=== PATIENT | female | born 2000 | race Two or more races ===

== ENCOUNTER 2024-01-06 09:22 | Emergency (ER) | payer MEDICAID, SELFPAY ==
[2024-01-06 09:29] VITALS: BP 118/70; PULSE 77; RESP 16; TEMP 36.8; O2SAT 100; BMI 24.7
--- NOTE | 2024-01-06 09:44 | XR_ITS ---
Examination: Pelvic ultrasound, transabdominal, complete Technique: Transabdominal ultrasound of the pelvis performed using grayscale imaging Date and time of exam: January 06, 2024 1128 hours INDICATIONS: Left-sided pelvic pain beginning 4 days ago, 3 months FINDINGS: Uterus 9.2 x 3.9 x 4.9 cm Endometrial stripe 0.5 cm No uterine mass or intrauterine gestation Right ovary 3.0 x 1.6 x 2.1 cm arterial flow small follicles Left ovary 3.5 x 1.9 x 3.0 cm arterial flow small follicles IMPRESSION: Negative examination
[2024-01-06 11:00] LABS: Basophils % (Auto) 0 % (0-2.5); Eosinophils # (Auto) 0.1 Thou/mm3 (0.0-0.5); Eosinophils % (Auto) 2 % (0-10); Hematocrit 37.4 % (36.0-46.0); Hemoglobin 12.5 g/dL (12.0-16.0); Immature Granulocytes % (Auto) 0 % (0-0); Immature Granulocytes Auto 0.01 Thou/mm3 (0.00-0.00); Lymphocytes # (Auto) 1.5 Thou/mm3 (1.0-4.8); Lymphocytes % (Auto) 23 % (10-50); Mean Corpuscular HGB Conc 33.4 g/dl (31.0-37.0); Mean Corpuscular Hemoglobin 30.7 pg (25.0-35.0); Mean Corpuscular Volume 92 fL (80-100); Monocytes # (Auto) 0.4 Thou/mm3 (0.0-0.8); Monocytes % (Auto) 6 % (0-12); Neutrophils # (Auto) 4.7 Thou/mm3 (1.8-7.7); Neutrophils % (Auto) 69 % (37-80); Nucleated Red Blood Cell % 0 /100 WBC (0); Platelet Count 281 Thou/mm3 (140-440); RDW Standard Deviation 41.8 fL (36.4-46.3); Red Blood Count 4.07 Miln/mm3 (4.00-5.20); White Blood Count 6.8 Thou/mm3 (3.6-11.0)
[2024-01-06 11:16] LABS: Alanine Aminotransferase 66 U/L (10-49); Albumin, Serum 4.7 gm/dL (3.5-5.0); Albumin/Globulin Ratio 1.7 (1.2-2.2); Alkaline Phosphatase 117 U/L (46-116); Anion Gap 5 (7-16); Aspartate Amino Transferase 39 U/L (0-34); BUN/Creatinine Ratio 15 Ratio (12-20); Bilirubin,Total 0.3 mg/dL (0.3-1.2); Blood Urea Nitrogen 9 mg/dL (9-23); Calcium 9.7 mg/dL (8.3-10.6); Calcium (Corrected) 9.7 mg/dL (8.5-10.1); Carbon Dioxide 24.7 mMol/L (20.0-31.0); Chloride 108 mMol/L (98-107); Creatinine (Component) 0.6 mg/dL (0.6-1.3); Estimated Creatinine Clearance 133.1 mL/min (>60); Globulin 2.8 gm/dL (2.3-3.5); Glucose 116 mg/dL (74-106); Lipase 46 U/L (12-53); Osmolality,Calculated 275 (275-295); Potassium 3.8 mMol/L (3.4-5.1); Sodium 138 mMol/L (136-145); Total Protein 7.5 gm/dL (5.7-8.2); eGFR > 60 See Note
[2024-01-06 11:21] LABS: Collection Type, Urine Clean Catch
[2024-01-06 11:29] LABS: Bilirubin,Urine Negative (Negative); Blood,Urine Negative (Negative); Clarity,Urine Clear (Clear/Hazy); Color,Urine Lt-Yellow (Lt Yel-Yel); Culture Indicated,Urine Not Indicated; Glucose, Urine Negative (Negative); Ketones,Urine Negative (Negative); Leukocyte Esterase,Urine Negative (Negative); Nitrite,Urine Negative (Negative); PH,Urine 6.5 (5.0-7.0); Protein,Urine Negative (Neg - Trace); RBC,Urine 2 /hpf (0-3); Specific Gravity,Urine 1.023 (1.001-1.035); Squamous Epithelial Cell,Urine 6 /hpf (0-5); Urobilinogen,Urine Negative mg/dL (0.0-1.0); WBC,Urine 1 /hpf (0-5)
[2024-01-06 11:32] LABS: HCG Qualitative,Urine Negative
--- NOTE | 2024-01-06 11:36 | PD.EDRME ---
Rapid Medical Screening Exam RME Arrival date/time: 01/06/24 09:22 23-year-old female presents emergency department complains of left-sided pelvic pain Chief Complaint: Abdominal Pain Time Seen by Provider: 01/06/24 09:28 Vital signs: Vital Signs Temperature 98.3 F 01/06/24 09:29 Pulse Rate 77 01/06/24 09:29 Respiratory Rate 16 01/06/24 09:29 Blood Pressure 118/70 01/06/24 09:29 Pulse Oximetry (%) 100 01/06/24 09:29 Oxygen Delivery Method Room Air 01/06/24 09:29
--- NOTE | 2024-01-06 13:11 | PD.EDADULT ---
ED General RME/HPI General Chief complaint: Abdominal Pain Stated complaint: LEFT LOWER ABDOMINAL PAIN X4 DAYS Time Seen by Provider: 01/06/24 09:28 Arrival date/time: 01/06/24 09:22 CC: Left suprapubic pain HPI ongoing for the past several days. Patient denies painful urination bloody urination nausea vomiting or diarrhea. The patient is delivered a child 3 months ago is not breast-feeding denies any other symptoms no OTC medicines taken. RME / HPI RME / HPI narrative: 01/06/24 09:22 23-year-old female presents emergency department complains of left-sided pelvic pain Related Data Allergies Allergy/AdvReac Type Severity Reaction Status Date / Time No Known Allergies Allergy Verified 01/06/24 09:26 Review of Systems Review of Systems Narrative Review of Systems: GEN: No fever, no chills, no weight loss EYES: No discharge, no visual changes, no pain HEENT: No ear pain, no congestion, no sore throat PULM: No shortness of breath, no cough, no congestion CV: No chest pain, no dyspnea on exertion, no palpitations GI: No nausea, no vomiting, no diarrhea, + pain, no constipation : No frequency, no urgency, no dysuria MUSC/SKEL: No joint pain, no back pain SKIN: No rash PSYCH: No hallucinations, no depression HEME/LYMPH: No easy bleeding or bruising tendencies NEURO: No weakness, no headache Past Medical History Past Medical History CARDIAC: Negative Congestive Heart Failure RESPIRATORY: Negative Chronic Obstructive Pulmonary Disease (COPD) GENITOURINARY: Negative Renal Disease ENDOCRINE: Negative Diabetes Mellitus Type 1 or Diabetes Mellitus Type 2 Social History SMOKING STATUS: Never smoker ED Exam Narrative Physical exam: [General: Obese not in cot no acute distress Head normocephalic HEENT: Within acceptable limits Neck is supple nontender Chest equal chest rise nontender to palpation Respiratory: Clear to auscultation no wheezes crackles or rubs CV: Rate rhythm is regular no murmurs rubs or clicks Abdomen left suprapubic pain is reproducible palpation there is mild reflexive guarding but no rebound tenderness. No pain in any other quadrant of the abdomen with deep palpation. Back: No CVA tenderness no spinous process tenderness from cervical spine thoracic and lumbar spine Skin: Intact no petechiae rash induration ulceration or crepitus Extremities: Moving all extremity against resistance cap refill less than 2 seconds neurosensory intact Neuro: Awake alert oriented x3 Glascow coma 15 no focal deficits] Course Quality Measures none Orders Category Date Time Status US pelvic complete Stat Exams 01/06/24 09:44 Completed CBC Stat Lab 01/06/24 10:26 Completed Comprehensive Metabolic Panel Stat Lab 01/06/24 10:26 Completed HCG Qualitative,Urine Stat Lab 01/06/24 11:10 Completed Lipase Stat Lab 01/06/24 10:26 Completed UA, C/S IF [Urinalysis, C/S if Indicated] Stat Lab 01/06/24 11:10 Completed Vital Signs Vital signs: Vital Signs Temperature 98.3 F 01/06/24 09:29 Pulse Rate 77 01/06/24 09:29 Respiratory Rate 16 01/06/24 09:29 Blood Pressure 118/70 01/06/24 09:29 Pulse Oximetry (%) 100 01/06/24 09:29 Oxygen Delivery Method Room Air 01/06/24 09:29 [facility] Patient data External records reviewed:: [facility] previous records Clinical information provided by:: patient Social determinants that could affect healthcare access:: none Patient has the following chronic illnesses:: None How is presenting disease/condition affected by chronic disease/condition?: uneffected by Evaluation data The following diagnostics were reviewed and interpreted by me:: lab results and radiology exam(s) Lab and/or radiology exams considered but not ordered:: CBC shows no acute leukocytosis anemia thrombocytopenia CMP shows no electrolyte imbalances renal impairment there is mild transaminitis but the T. bili is normal Urine is negative Urine is negative Ultrasound shows no acute finding in the lower abdomen. Interpretation Summary: Lower abdomen pain is probably muscular in nature as the patient carries her child in the left arm consistently. Medications Medications considered but not ordered:: None Medication administrations:: None Consultations Consultation(s) initiated? (list below): No Diagnosis Differential Diagnosis ED Complaint MDM: Ovarian cyst uterine fibroid UTI Most likely diagnosis given after review of the tests above:: Lower abdominal pain Admission Indicated Admission indicated?: not indicated Explain why admission is indicated or not indicated:: Stable for outpatient follow-up Admission Request Was there a request for admission?: No Disposition Plan Disposition Plan: Discharge Discharge Attestation Discharge Attestation: The patient and all family members were given an opportunity to ask questions and understood the discharge instructions. Discharge instructions specifically effects, indications for sooner follow up or return to the emergency department, and the expected course of current diagnosis. Patient condition: Stable Medical Decision Making Differential Diagnosis Differential Diagnosis: Ovarian cyst uterine fibroid UTI Lab Data 01/06/24 10:01/06/24: Labs: Lab Results 01/06/24 01/06/24 Range/Units 10: 11:10 WBC 6.8 (3.6-11.0) Thou/mm3 RBC 4.07 (4.00-5.20) Miln/mm3 Hgb 12.5 (12.0-16.0) g/dL Hct 37.4 (36.0-46.0) % MCV 92 (80-100) fL MCH 30.7 (25.0-35.0) pg MCHC 33.4 (31.0-37.0) g/dl RDW Std Deviation 41.8 (36.4-46.3) fL Plt Count 281 (140-440) Thou/mm3 Neut % (Auto) 69 (37-80) % Lymph % (Auto) 23 (10-50) % [place] % (Auto) 6 (0-12) % Eos % (Auto) 2 (0-10) % Baso % (Auto) 0 (0-2.5) % Neut # (Auto) 4.7 (1.8-7.7) Thou/mm3 Lymph # (Auto) 1.5 (1.0-4.8) Thou/mm3 [place] # (Auto) 0.4 (0.0-0.8) Thou/mm3 Eos # (Auto) 0.1 (0.0-0.5) Thou/mm3 Baso # (Auto) 0.0 (0.0-0.2) Thou/mm3 Immature Gran # (Auto) 0.01 H (0.00-0.00) Thou/mm3 Absolute Nucleated RBC 0.00 (0.00-0.00) Thou/mm3 Immature Gran % 0 (0-0) % Nucleated RBC % 0 (0) /100 WBC Sodium 138 (136-145) mMol/L Potassium 3.8 (3.4-5.1) mMol/L Chloride 108 H (98-107) mMol/L Carbon Dioxide 24.7 (20.0-31.0) mMol/L Anion Gap 5 L (7-16) BUN 9 (9-23) mg/dL Creatinine 0.6 (0.6-1.3) mg/dL Estim Creat Clear Calc 133.1 (>60) mL/min eGFR > 60 (60 - ) See Note BUN/Creatinine Ratio 15 (12-20) Ratio Glucose 116 H (74-106) mg/dL Calculated Osmolality 275 (275-295) Calcium 9.7 (8.3-10.6) mg/dL Corrected Calcium 9.7 (8.5-10.1) mg/dL Total Bilirubin 0.3 (0.3-1.2) mg/dL AST 39 H (0-34) U/L ALT 66 H (10-49) U/L Alkaline Phosphatase 117 H (46-116) U/L Total Protein 7.5 (5.7-8.2) gm/dL Albumin 4.7 (3.5-5.0) gm/dL Globulin 2.8 (2.3-3.5) gm/dL Albumin/Globulin Ratio 1.7 (1.2-2.2) Lipase 46 (12-53) U/L Ur Collection Type Clean Catch Urine Color Lt-Yellow (Lt Yel-Yel) Urine Clarity Clear (Clear/Hazy) Urine pH 6.5 (5.0-7.0) Ur Specific [place] 1.023 (1.001-1.035) Urine Protein Negative (Neg - Trace) Urine Glucose (UA) Negative (Negative) Urine Ketones Negative (Negative) Urine Blood Negative (Negative) Urine Nitrite Negative (Negative) Urine Bilirubin Negative (Negative) Urine Urobilinogen (Auto) Negative (0.0-1.0) mg/dL Ur Leukocyte Esterase Negative (Negative) Urine RBC 2 (0-3) /hpf Urine WBC 1 (0-5) /hpf Ur Squamous Epith Cells 6 H (0-5) /hpf Urine Bacteria None (None) Ur Culture Indicated? Not Indicated Urine HCG, Qual Negative Discharge Plan Plan Patient Disposition: HOME (Self Care) Patient condition on transfer: Stable Prescriptions/Referrals Referrals: James Domingo MD [Primary Care Provider] - In 1 week Problem List Clinical Impression: Abdominal pain, left lower quadrant Patient/Caregiver Discharge Instructions Other Activity Instructions:: Take ibuprofen or Tylenol for pain follow-up with your primary care provider if there is worsening of symptoms in spite of the medication recommended for return to the emergency room for reevaluation. Education Materials: Abdominal Pain Print Language: Welsh Stand Alone Forms: Kaila Award Info., Patient Portal Info Letter, Work/School Release PA/CASH APPLICATIONS REPRESENTATIVE Supervising Physician PA/CASH APPLICATIONS REPRESENTATIVE Supervising Physician: Franco Pierce NP
== END 2024-01-06 13:41 | disposition home or self-care (01) ==
PROVIDERS: Nurse Practitioner Primary Care; Emergency Provider Emergency Medicine; PCP Family Medicine
DX: R10.32 Left lower quadrant pain (principal); R10.2 Pelvic and perineal pain
CPT/HCPCS: 36415; 76856; 80053; 81001; 81025; 83690; 85025; 99284

== ENCOUNTER 2024-07-25 10:56 | Emergency (ER) | payer MEDICAID, SELFPAY ==
[2024-07-25 11:18] VITALS: BP 105/71; PULSE 80; RESP 16; TEMP 36.8; O2SAT 99; BMI 31.7
--- NOTE | 2024-07-25 11:27 | XR_ITS ---
Examination: Abdomen sonogram, Limited Date and time of exam: July 25, 2024 1134 hours INDICATIONS: Onset right upper abdominal pain beginning today Technique: Real-time brewer scale transabdominal sonographic images of the upper abdomen obtained. Findings: Negative for gallstones Gallbladder wall 0.3 cm Common bile duct 0.4 cm Pancreatic head 1.6 cm Liver 15.5 cm fatty infiltration no focal liver lesions Normal hepatopedal portal venous flow Patent IVC IMPRESSION: Normal gallbladder Fatty liver
--- NOTE | 2024-07-25 11:28 | PD.EDRME ---
Rapid Medical Screening Exam RME Arrival date/time: 07/25/24 10:56 23-year-old female presents to the emergency department today for complaint of upper abdominal pain patient reports history of gallstones Chief Complaint: Abdominal Pain Vital signs: Vital Signs Temperature 98.2 F 07/25/24 11:18 Pulse Rate 80 07/25/24 11:18 Respiratory Rate 16 07/25/24 11:18 Blood Pressure 105/71 07/25/24 11:18 Pulse Oximetry (%) 99 07/25/24 11:18 Oxygen Delivery Method Room Air 07/25/24 11:18
[2024-07-25 12:04] LABS: Basophils % (Auto) 0 % (0-2.5); Eosinophils # (Auto) 0.1 Thou/mm3 (0.0-0.5); Eosinophils % (Auto) 1 % (0-10); Hemoglobin 14.2 g/dL (12.0-16.0); Immature Granulocytes % (Auto) 0 % (0-0); Immature Granulocytes Auto 0.02 Thou/mm3 (0.00-0.00); Lymphocytes # (Auto) 1.9 Thou/mm3 (1.0-4.8); Lymphocytes % (Auto) 23 % (10-50); Mean Corpuscular HGB Conc 36.4 g/dl (31.0-37.0); Mean Corpuscular Hemoglobin 33.4 pg (25.0-35.0); Mean Corpuscular Volume 92 fL (80-100); Monocytes # (Auto) 0.6 Thou/mm3 (0.0-0.8); Monocytes % (Auto) 8 % (0-12); Neutrophils # (Auto) 5.5 Thou/mm3 (1.8-7.7); Neutrophils % (Auto) 67 % (37-80); Nucleated Red Blood Cell % 0 /100 WBC (0); Platelet Count 269 Thou/mm3 (140-440); RDW Standard Deviation 40.1 fL (36.4-46.3); Red Blood Count 4.25 Miln/mm3 (4.00-5.20); White Blood Count 8.1 Thou/mm3 (3.6-11.0)
[2024-07-25] MEDS: ONDANSETRON ODT 4 MG TABRAP PO (12:09)
[2024-07-25] MEDS: HYDROcodone/APAP 5/325 TABLET 1 TAB PO (12:09)
[2024-07-25 12:22] LABS: Alanine Aminotransferase 20 U/L (10-49); Albumin, Serum 4.6 gm/dL (3.5-5.0); Albumin/Globulin Ratio 1.8 (1.2-2.2); Alkaline Phosphatase 102 U/L (46-116); Anion Gap 11 (7-16); Aspartate Amino Transferase 16 U/L (0-34); BUN/Creatinine Ratio 13 Ratio (12-20); Bilirubin,Total 0.5 mg/dL (0.3-1.2); Blood Urea Nitrogen 9 mg/dL (9-23); Calcium 9.1 mg/dL (8.3-10.6); Calcium (Corrected) 9.1 mg/dL (8.5-10.1); Carbon Dioxide 25.2 mMol/L (20.0-31.0); Chloride 106 mMol/L (98-107); Creatinine (Component) 0.7 mg/dL (0.6-1.3); Estimated Creatinine Clearance 118.7 mL/min (>60); Globulin 2.6 gm/dL (2.3-3.5); Glucose 89 mg/dL (74-106); Lipase 45 U/L (12-53); Osmolality,Calculated 280 (275-295); Potassium 3.7 mMol/L (3.4-5.1); Sodium 142 mMol/L (136-145); Total Protein 7.2 gm/dL (5.7-8.2); eGFR > 60 See Note
[2024-07-25 12:41] LABS: Collection Type, Urine Clean Catch
[2024-07-25 13:01] LABS: Bilirubin,Urine Negative (Negative); Blood,Urine Negative (Negative); Clarity,Urine Clear (Clear/Hazy); Color,Urine Lt-Yellow (Lt Yel-Yel); Culture Indicated,Urine Not Indicated; Glucose, Urine Negative (Negative); Ketones,Urine Negative (Negative); Leukocyte Esterase,Urine Negative (Negative); Nitrite,Urine Negative (Negative); PH,Urine 6.5 (5.0-7.0); Protein,Urine Negative (Neg - Trace); RBC,Urine 2 /hpf (0-3); Specific Gravity,Urine 1.017 (1.001-1.035); Squamous Epithelial Cell,Urine 7 /hpf (0-5); Urobilinogen,Urine Negative mg/dL (0.0-1.0); WBC,Urine 1 /hpf (0-5)
[2024-07-25 13:03] LABS: HCG Qualitative,Urine Negative
--- NOTE | 2024-08-03 17:33 | EDNOTE_ITS ---
ED Abdominal Pain RME/HPI General Chief Complaint: Abdominal Pain Stated complaint: RIGHT ABD / GALLBLADDER PAIN; VOMITING Time seen by provider: 07/25/24 11:36 Arrival date/time: 07/25/24 10:56 23-year-old female presents to the emergency department today for complaint of upper abdominal pain patient reports history of gallstones Source: patient Mode of arrival: ambulatory Limitations: no limitations RME / HPI RME / HPI narrative: 07/25/24 10:56 23-year-old female presents to the emergency department today for complaint of upper abdominal pain patient reports history of gallstones Related Data Previous Rx's ?Medication ?Instructions ?Recorded ondansetron 4 mg disintegrating 4 mg PO Q8H PRN nausea and 07/25/24 tablet vomiting #14 tabs Allergies Allergy/AdvReac Type Severity Reaction Status Date / Time No Known Allergies Allergy Verified 01/06/24 09:26 Review of Systems Review of Systems Systems Reviewed: All systems reviewed, normal except as documented Constitutional Constitutional: Reports system reviewed and no additional complaints, except as documented, Denies fatigue, Denies fever(s), Denies headache(s) and Denies weakness Eyes Eyes: Reports system reviewed and no additional complaints, except as documented, Denies blurry vision and Denies change in vision ENT Ears, Nose, Mouth, and Throat: Reports system reviewed and no additional complaints, except as documented, Denies otalgia, Denies headache(s), Denies nasal congestion, Denies throat swelling and Denies vertigo Cardiovascular Cardiovascular: Reports system reviewed and no additional complaints, except as documented, Denies chest pain, Denies dyspnea and Denies dyspnea on exertion Respiratory Respiratory: Reports system reviewed and no additional complaints, except as documented, Denies chest congestion, Denies cough, Denies dyspnea, Denies dyspnea on exertion and Denies wheezing Gastrointestinal Gastrointestinal: Reports system reviewed and no additional complaints, except as documented, Reports abdominal pain, Reports cramping, Reports nausea and Reports vomiting Genitourinary Genitourinary: Reports system reviewed and no additional complaints, except as documented Musculoskeletal Musculoskeletal: Reports system reviewed and no additional complaints, except as documented and Denies back pain Integumentary/Breasts Skin/Breast: Reports system reviewed and no additional complaints, except as documented and Denies wounds Neurologic Neurologic: Reports system reviewed and no additional complaints, except as documented, Denies confusion, Denies headache(s), Denies lack of coordination, Denies vertigo and Denies weakness Psychiatric Psychiatric: Reports system reviewed and no additional complaints, except as documented, Denies anxiety, Denies confusion, Denies depression, Denies paranoia, Denies suicidal ideation and Denies tactile hallucinations Endocrine Endocrine: Reports system reviewed and no additional complaints, except as documented and Denies fatigue Hematologic/Lymphatic Hematologic/Lymphatic: Reports system reviewed and no additional complaints, except as documented and Denies lymphadenopathy Allergic/Immunologic Allergic/Immunologic: Reports system reviewed and no additional complaints, except as documented, Denies throat swelling, Denies urticaria and Denies wheezing Past Medical History Past Medical History CARDIAC: Negative Congestive Heart Failure RESPIRATORY: Negative Chronic Obstructive Pulmonary Disease (COPD) GENITOURINARY: Negative Renal Disease ENDOCRINE: Negative Diabetes Mellitus Type 1 or Diabetes Mellitus Type 2 Social History SMOKING STATUS: Never smoker ED Exam General Limitations: Present no limitations General appearance: Present alert and in no apparent distress Head Head exam: Present atraumatic Eye Eye exam: Present normal appearance, PERRL and EOMI ENT ENT exam: Present normal exam, normal oropharynx and mucous membranes moist Neck Neck exam: Present normal inspection, full ROM and trachea midline Chest Chest inspection: Present normal inspection and symmetric chest wall rise Respiratory Respiratory exam: Present normal lung sounds bilaterally Cardiovascular Cardiovascular exam: Present regular rate, normal rhythm and normal heart sounds Abdominal Exam Abdominal exam: Present soft, tenderness and normal bowel sounds Abdominal tenderness: Present RUQ and mild Extremities Exam Extremities exam: Present normal inspection and full ROM Back Exam Back exam: Present normal inspection and full ROM Neurological Exam Neurological exam: Present alert, oriented X3 and CN II-XII intact Psychiatric Psychiatric exam: Present normal affect and normal mood Skin Skin exam: Present warm, dry, intact and normal color Course Quality Measures none Orders Category Date Time Status US gall bladder Stat Exams 07/25/24 11:27 Completed CBC Stat Lab 07/25/24 11:50 Completed Comprehensive Metabolic Panel Stat Lab 07/25/24 11:50 Completed HCG Qualitative,Urine Stat Lab 07/25/24 12:33 Completed Lipase Stat Lab 07/25/24 11:50 Completed UA, C/S IF [Urinalysis, C/S if Indicated] Stat Lab 07/25/24 12:33 Completed HYDROcodone*/APAP 5/325 [Isabela 5/325] Med 07/25/24 11:28 Discontinued 1 tab PO X1 ONE Ondansetron Odt [Zofran Odt] Med 07/25/24 11:28 Discontinued 4 mg PO X1 ONE Vital Signs Vital signs: Vital Signs Temperature 98.2 F 07/25/24 11:18 Pulse Rate 80 07/25/24 11:18 Respiratory Rate 16 07/25/24 11:18 Blood Pressure 105/71 07/25/24 11:18 Pulse Oximetry (%) 99 07/25/24 11:18 Oxygen Delivery Method Room Air 07/25/24 11:18 O2 saturation 99% within normal limits Abdominal Pain MDM MDM Narrative MDM Narrative:: 23-year-old female presents to the emergency department today for complaint of upper abdominal pain patient reports history of gallstones Patient is hemodynamically stable and in no apparent distress. She is afebrile not tachycardic not tachypneic Physical examination shows pain and tenderness to the right upper quadrant with palpation. There is a negative Moctezuma sign Ultrasound of the gallbladder was completed and shows a normal gallbladder there is no cholecystitis or any cholelithiasis CBC CMP are within normal limits Urinalysis is within normal limits Patient was discharged and educated to follow-up with primary care provider in the next 24 to 48 hours and return to the emergency room for any evidence of worsening signs or symptoms Patient data External records reviewed:: [facility] previous records Clinical information provided by:: patient Social determinants that could affect healthcare access:: none Patient has the following chronic illnesses:: No chronic illness How is presenting disease/condition affected by chronic disease/condition?: no chronic disease Evaluation data The following diagnostics were reviewed and interpreted by me:: lab results and radiology exam(s) Lab and/or radiology exams considered but not ordered:: Labs and radiology exams considered and ordered Interpretation Summary: Ultrasound gallbladder-Findings: Negative for gallstones Gallbladder wall 0.3 cm Common bile duct 0.4 cm Pancreatic head 1.6 cm Liver 15.5 cm fatty infiltration no focal liver lesions Normal hepatopedal portal venous flow Patent IVC IMPRESSION: Normal gallbladder Fatty liver Medications / Prescriptions Medications or Prescriptions considered but not ordered:: Medication given Medication administrations:: Medication Administration History Discontinued Medications Hydrocodone Bitart/Acetaminophen (Hydrocodone/Apap 5/325 Tablet) 1 tab PO X1 ONE Stop: 07/25/24 11:29 Last Admin: 07/25/24 12:09 Dose: 1 tab Documented By: THAO Ondansetron HCl (Ondansetron Odt 4 Mg Tabrap) 4 mg PO X1 ONE; Protocol Stop: 07/25/24 11:29 Last Admin: 07/25/24 12:09 Dose: 4 mg Documented By: THAO Medication given Consultations Consultation(s) initiated? (list below): No Diagnosis Differential diagnosis abdominal pain: abdominal pain, gastroenteritis and other (Cholelithiasis/cholecystitis) Most likely diagnosis given after review of the tests above:: Gastroenteritis Admission Indicated Admission indicated?: not indicated Admission Request Was there a request for admission?: No Disposition Plan Disposition Plan: Discharge Discharge Attestation Discharge Attestation: The patient and all family members were given an opportunity to ask questions and understood the discharge instructions. Discharge instructions specifically effects, indications for sooner follow up or return to the emergency department, and the expected course of current diagnosis. Patient condition: Stable Discharge Plan Plan Patient Disposition: HOME (Self Care) Discharge Disposition comment: Stable Prescriptions/Referrals Prescriptions/Med Rec: New ondansetron 4 mg tablet,disintegrating 4 mg PO Q8H PRN (Reason: nausea and vomiting) Qty: 14 0RF Referrals: James Domingo MD [Primary Care Provider] - In 1 week Problem List Clinical Impression: Gastroenteritis Patient/Caregiver Discharge Instructions Education Materials: Understanding Colitis, ED Gastroenteritis, Noninfectious Additional Instructions: Por favor, consulte con oliveira m?dico de cabecera en las pr?ximas 24 a 48 horas. Se realiz? josiah ecograf?a de la ves?cula biliar y el resultado fue negativo para c?lculos biliares o cualquier hallazgo josé miguel. Coleen an?lisis de dottie y orina estaban dentro de los l?mites normales. Si hay alguna evidencia de empeoramiento de los signos o s?ntomas, regrese a la beny de emergencias de inmediato. Print Language: Turkmen Stand Alone Forms: Kaila Award Info., Work/School Release, Patient Portal Info Letter PA/QUALITY ASSURANCE SUPERVISOR TRIM Supervising Physician PA/QUALITY ASSURANCE SUPERVISOR TRIM Supervising Physician: Dr Walker
== END 2024-07-25 20:41 | disposition home or self-care (01) ==
PROVIDERS: Nurse Practitioner Primary Care; Emergency Provider Emergency Medicine; PCP Family Medicine
DX: K52.9 Noninfective gastroenteritis and colitis, unspecified (principal); K76.0 Fatty (change of) liver, not elsewhere classified
CPT/HCPCS: 36415; 76705; 80053; 81001; 81025; 83690; 85025; 99284; Q0162; A9270

== ENCOUNTER 2024-10-25 10:56 | Emergency (ER) | payer MEDICAID, SELFPAY ==
--- NOTE | 2024-10-25 11:35 | XR_ITS ---
Examination: Abdomen sonogram, Limited Date and time of exam: October 25, 2024 1213 hours INDICATIONS: Right upper abdominal pain nausea vomiting beginning 2 days ago Technique: Real-time brewer scale transabdominal sonographic images of the upper abdomen obtained. Findings: Normal gallbladder Normal common bile duct 0.2 cm Pancreatic head 2.5 cm Liver 16.4 cm fatty infiltration Normal hepatopedal portal venous oh Patent IVC IMPRESSION: Normal gallbladder Mild hepatomegaly fatty infiltration throughout the liver
[2024-10-25 11:36] VITALS: BP 108/72; PULSE 79; RESP 18; TEMP 37.3; O2SAT 97; BMI 26.9
--- NOTE | 2024-10-25 11:36 | EDNOTE_ITS ---
<Statement entered by Rochelle Carrero MD - 11/05/24 11:18> As co-signing physician, I was present and available for consult prn. I concur with the plan and care as documented by the midlevel provider. ED General RME/HPI General Chief complaint: Abdominal Pain Stated complaint: R) ABD PAIN X 2 DAYS Time Seen by Provider: 10/25/24 11:21 Arrival date/time: 10/25/24 10:56 CC: Right upper quadrant abdominal pain HPI ongoing for the past 2 days worse after meals radiates to the back prior history of it in April was seen here and told it was nothing . Patient states she has had last vomiting was at 8 AM this morning continues to be nauseated denies painful urination bloody urination or diarrhea. No OTC medicines taken. Patient seen by [facility] localized pain is a 6 to an 8 on a 10 scale worse when she walks or after meals. Related Data Previous Rx's ?Medication ?Instructions ?Recorded ondansetron 4 mg disintegrating 4 mg PO Q8H PRN nausea and 07/25/24 tablet vomiting #14 tabs pantoprazole 20 mg tablet,delayed 20 mg PO QDAY #30 ta bs 10/25/24 release (Protonix) Allergies Allergy/AdvReac Type Severity Reaction Status Date / Time No Known Allergies Allergy Verified 10/25/24 11:01 Review of Systems Review of Systems Narrative Review of Systems: GEN: No fever, no chills, no weight loss EYES: No discharge, no visual changes, no pain HEENT: No ear pain, no congestion, no sore throat PULM: No shortness of breath, no cough, no congestion CV: No chest pain, no dyspnea on exertion, no palpitations GI: + nausea, + vomiting, no diarrhea, + pain, no constipation : No frequency, no urgency, no dysuria MUSC/SKEL: No joint pain, no back pain SKIN: No rash PSYCH: No hallucinations, no depression HEME/LYMPH: No easy bleeding or bruising tendencies NEURO: No weakness, no headache Past Medical History Past Medical History CARDIAC: Negative Congestive Heart Failure RESPIRATORY: Negative Chronic Obstructive Pulmonary Disease (COPD) GENITOURINARY: Negative Renal Disease ENDOCRINE: Negative Diabetes Mellitus Type 1 or Diabetes Mellitus Type 2 Social History SMOKING STATUS: Never smoker ED Exam Narrative Physical exam: [General: In mild discomfort but not in any acute distress Head normocephalic HEENT: Eyes pupils are PERRLA EOMs are intact although subsystems of HEENT are within acceptable limits Neck is supple nontender Chest equal chest rise nontender to palpation Respiratory: Clear to auscultation no wheezes crackles or rubs CV: Rate rhythm is regular no murmurs rubs or clicks Abdomen is soft epigastric right upper quadrant tenderness with reflexive guarding no rebound tenderness. No lower abdominal pain with palpation. Back: No CVA tenderness no spinous process tenderness from cervical spine thoracic and lumbar spine Skin: Intact no petechiae rash induration ulceration or crepitus Extremities: Moving all extremity against resistance cap refill less than 2 seconds neurosensory intact Neuro: Awake alert oriented x3 Glascow coma 15 no focal deficits] Course Course Course Narrative: Patient had significant relief with Maalox, I suspect this is all reflux, will discharge the patient home on Protonix and told to be on a bland diet. Quality Measures none Orders Category Date Time Status US gall bladder Stat Exams 10/25/24 11:35 Completed B-Type Natriuretic Peptide Stat Lab 10/25/24 12:38 Completed CBC Stat Lab 10/25/24 12:38 Completed Comprehensive Metabolic Panel Stat Lab 10/25/24 12:38 Completed Drug Screen,Urine Stat Lab 10/25/24 12:00 Completed Lipase Stat Lab 10/25/24 12:38 Completed Magnesium Stat Lab 10/25/24 12:38 Completed Partial Thromboplastin Time Stat Lab 10/25/24 12:38 Completed Prothrombin Time with INR Stat Lab 10/25/24 12:38 Completed Urinalysis, C/S if Indicated Stat Lab 10/25/24 12:00 Completed Ondansetron Odt [Zofran Odt] Med 10/25/24 11:35 Discontinued 4 mg PO X1 ONE mg Hyd/Al Hyd/Josephine Susp [Maalox Susp] Med 10/25/24 11:35 Discontinued 30 ml PO X1 ONE Vital Signs Vital signs: Vital Signs Temperature 99.1 F 10/25/24 11:36 Pulse Rate 79 10/25/24 11:36 Respiratory Rate 18 10/25/24 11:36 Blood Pressure 108/72 10/25/24 11:36 Pulse Oximetry (%) 97 10/25/24 11:36 Oxygen Delivery Method Room Air 10/25/24 11:36 Discharge Plan Plan Patient Disposition: HOME (Self Care) Patient condition on transfer: Stable Prescriptions/Referrals Prescriptions/Med Rec: New pantoprazole [Protonix] 20 mg tablet,delayed release (DR/EC) 20 mg PO QDAY Qty: 30 1RF No Action ondansetron 4 mg tablet,disintegrating 4 mg PO Q8H PRN (Reason: nausea and vomiting) Qty: 14 0RF Referrals: No Primary/Family,Physician [Primary Care Provider] - In 1 week James Domingo MD [Physician] - In 1 week Problem List Clinical Impression: Acid reflux Patient/Caregiver Discharge Instructions Education Materials: ED Diet, Twain (Adult), ED GERD (Adult) Additional Instructions: Avoid all greasy spicy and fatty foods take the medication as prescribed if there is a worsening of symptoms in spite of these medications return the emergency room immediately for further evaluation. Print Language: Gabonese Stand Alone Forms: Kaila Award Info., Patient Portal Info Letter, Work/School Release PA/STATION ENGINEER Supervising Physician PA/STATION ENGINEER Supervising Physician: Franco Bowens ENP [facility] Clinical Information Provided by patient Medical Records Reviewed [facility] Meds/Rx Considered, not Ordered None Labs/Rad/Tests considered, not Ordered None Chronic Illness/Social Conditions which may negatively complicate care or outcome(s)-explain: None or not applicable EKG EKG not done Lab Interpretation Labs: interpreted by vt Lab(s) interpretation(s): CBC shows no acute leukocytosis anemia thrombocytopenia Coags within acceptable limits CMP shows no significant electrolyte imbalances renal impairment transaminitis or T. bili elevation BNP is negative Lipase is within acceptable limits Urine is negative for urinary tract infection UDS is negative. Imaging Provider imaging interpretation(s): Ultrasound shows a normal gallbladder Medication Administration(s) Medication Administration History Discontinued Medications Al Hydrox/Mg Hydrox/Simethicone (Mg Hyd/Al Hyd/Josephine (Maalox Reg) Susp 30 Ml Udc) 30 ml PO X1 ONE Stop: 10/25/24 11:36 Last Admin: 10/25/24 11:48 Dose: 30 ml Documented By: THAO Ondansetron HCl (Ondansetron Odt 4 Mg Tabrap) 4 mg PO X1 ONE; Protocol Stop: 10/25/24 11:36 Last Admin: 10/25/24 11:50 Dose: 4 mg Documented By: THAO
[2024-10-25] MEDS: MG HYD/AL HYD/SIME (Maalox Reg) SUSP 30 ML UDC PO (11:48)
[2024-10-25] MEDS: ONDANSETRON ODT 4 MG TABRAP PO (11:50)
[2024-10-25 12:16] LABS: Collection Type, Urine Clean Catch
[2024-10-25 12:28] LABS: Bacteria,Urine Rare; Bilirubin,Urine Negative (Negative); Blood,Urine 1+ (Negative); Clarity,Urine Clear (Clear/Hazy); Color,Urine Yellow (Lt Yel-Yel); Culture Indicated,Urine Not Indicated; Glucose, Urine Negative (Negative); Ketones,Urine Negative (Negative); Leukocyte Esterase,Urine Negative (Negative); Nitrite,Urine Negative (Negative); PH,Urine 6.5 (5.0-7.0); Protein,Urine 1+ (Neg - Trace); RBC,Urine 5 /hpf (0-3); Specific Gravity,Urine 1.035 (1.001-1.035); Squamous Epithelial Cell,Urine 14 /hpf (0-5); Urobilinogen,Urine Negative mg/dL (0.0-1.0); WBC,Urine 4 /hpf (0-5)
[2024-10-25 12:36] LABS: Amphetamine/Methamp Scrn,U Negative (Negative); Barbiturate Screen,Urine Negative (Negative); Benzodiazepines Screen,Urine Negative (Negative); Benzoylecgonine Screen, Ur Negative (Negative); Fentanyl Screen,Urine Negative (Negative); Opiate Screen,Urine Negative (Negative); THC Screen,Urine Negative (Negative)
[2024-10-25 13:11] LABS: Basophils # (Auto) 0.0 Thou/mm3 (0.0-0.2); Basophils % (Auto) 0 % (0-2.5); Eosinophils # (Auto) 0.2 Thou/mm3 (0.0-0.5); Eosinophils % (Auto) 2 % (0-10); Hematocrit 40.0 % (36.0-46.0); Hemoglobin 13.5 g/dL (12.0-16.0); Immature Granulocytes Auto 0.02 Thou/mm3 (0.00-0.00); Lymphocytes # (Auto) 2.1 Thou/mm3 (1.0-4.8); Lymphocytes % (Auto) 28 % (10-50); Mean Corpuscular HGB Conc 33.8 g/dl (31.0-37.0); Mean Corpuscular Hemoglobin 32.9 pg (25.0-35.0); Mean Corpuscular Volume 98 fL (80-100); Monocytes # (Auto) 0.4 Thou/mm3 (0.0-0.8); Monocytes % (Auto) 5 % (0-12); Neutrophils # (Auto) 4.8 Thou/mm3 (1.8-7.7); Neutrophils % (Auto) 64 % (37-80); Nucleated Red Blood Cell # 0.00 Thou/mm3 (0.00-0.00); Nucleated Red Blood Cell % 0 /100 WBC (0); Platelet Count 289 Thou/mm3 (140-440); RDW Standard Deviation 42.9 fL (36.4-46.3); Red Blood Count 4.10 Miln/mm3 (4.00-5.20); White Blood Count 7.4 Thou/mm3 (3.6-11.0)
[2024-10-25 13:28] LABS: INR 1.1 (0.9-1.3); Partial Thromboplastin Time 24.1 Seconds (22.0-36.0); Prothrombin Time 11.9 Seconds (9.0-12.2)
[2024-10-25 13:29] LABS: B-Type Natriuretic Peptide < 20 pg/mL (0-100)
[2024-10-25 13:32] LABS: Alanine Aminotransferase 35 U/L (10-49); Albumin, Serum 4.6 gm/dL (3.5-5.0); Albumin/Globulin Ratio 1.8 (1.2-2.2); Alkaline Phosphatase 92 U/L (46-116); Anion Gap 11 (7-16); Aspartate Amino Transferase 23 U/L (0-34); BUN/Creatinine Ratio 10 Ratio (12-20); Bilirubin,Total 0.7 mg/dL (0.3-1.2); Blood Urea Nitrogen 7 mg/dL (9-23); Calcium 10.1 mg/dL (8.3-10.6); Calcium (Corrected) 10.1 mg/dL (8.5-10.1); Carbon Dioxide 22.1 mMol/L (20.0-31.0); Chloride 108 mMol/L (98-107); Creatinine (Component) 0.7 mg/dL (0.6-1.3); Estimated Creatinine Clearance 105.0 mL/min (>60); Globulin 2.5 gm/dL (2.3-3.5); Glucose 85 mg/dL (74-106); Lipase 31 U/L (12-53); Magnesium 1.8 mg/dL (1.6-2.6); Osmolality,Calculated 278 (275-295); Potassium 3.7 mMol/L (3.4-5.1); Sodium 141 mMol/L (136-145); Total Protein 7.1 gm/dL (5.7-8.2); eGFR > 60 See Note
[2024-10-25 14:08] VITALS: BP 113/72; PULSE 75; RESP 18; TEMP 36.7; O2SAT 99
== END 2024-10-25 14:53 | disposition home or self-care (01) ==
PROVIDERS: Registered Nurse General Practice; Emergency Provider Emergency Medicine
DX: K21.9 Gastro-esophageal reflux disease without esophagitis (principal)
CPT/HCPCS: 36415; 76705; 80053; 80307; 81001; 83690; 83735; 83880; 85025; 85610; 85730; 99283; Q0162; A9270